=== PATIENT | female | born 1985 ===

== ENCOUNTER 2024-05-03 19:47 | Emergency (ER) | payer SELFPAY ==
--- NOTE | ~2024-05-03 | XR_ITS ---
XR abdomen/kub 1V Ordering provider: Lupe Wang NP History: . abd. pain /bloating/cramping . Comparison: None. FINDINGS: BOWEL: Nonobstructive bowel gas pattern. ORGANOMEGALY: None. SIGNIFICANT PATHOLOGIC CALCIFICATIONS: None. OTHER: No free air is seen under the diaphragm. IMPRESSION: NO ACUTE ABDOMINAL FINDINGS. Reviewed, dictated and finalized at location A.
[2024-05-03 19:55] VITALS: BP 141/86; PULSE 59; RESP 16; TEMP 36.3; O2SAT 98
--- NOTE | 2024-05-03 20:07 | ED.ABDPAIN ---
HPI - Abdominal Pain General Chief Complaint: Abdominal Pain Stated Complaint: Stomach Pain Time Seen by Provider: 05/03/24 19:55 Source: patient Mode of arrival: ambulatory Limitations: no limitations History of Present Illness HPI narrative: 39 yo F presents with c/o ABD cramping, bloating since this afternoon. Started after having a bowel movement. pain and cramping moving around. Was to [facility] and now more center. Had a normal BM, no diarrhea or blood. Denies N/V. Afebrile. Denies urinary complaints. All systems reviewed and negative except as noted above. Related Data Home Medications Medication Instructions Recorded Confirmed buspirone 10 mg tablet mg 05/03/24 05/03/24 citalopram 40 mg tablet mg 05/03/24 Allergies Allergy/AdvReac Type Severity Reaction Status Date / Time No Known Allergies Allergy Verified 09/13/21 15:50 Review of Systems Review of Systems: CONSTITUTIONAL: Denies fever, chills, or sweats. EYES: Denies visual changes, redness, or discharge. ENT: Denies rhinorrhea, congestion, sore throat, or otalgia. CARDIOVASCULAR: Denies chest pain, palpitations, or edema. RESPIRATORY: Denies cough or dyspnea. GASTROINTESTINAL: Reports abdominal pain and cramping, bloating. Denies nausea, vomiting, or diarrhea. GENITOURINARY: Denies dysuria or hematuria. SKIN: Denies rash or itching. MUSCULOSKELETAL: Denies back pain, joint pain, or myalgia. NEUROLOGIC: Denies headache, numbness, or weakness. PSYCHIATRIC: Denies anxiety or depression. All other systems reviewed are negative, except as documented in HPI. PMFSH Social History Social History (Updated 09/13/21 @ 15:52 by Delmi Burleson RN) Smoking status: Never smoker Alcohol intake: current Substance use: never Substance use type: does not use Comments At time of signature, agree with nursing past medical, surgical, social and family history. There is no relevant family history pertinent to the presenting complaint. Exam Narrative: GENERAL: This is a well-nourished, well-developed patient, in no apparent distress. HEAD: normocephalic, atraumatic. EYES: PERRL. Sclera clear/white. Vision is grossly intact. EARS: External ears normal NOSE: External nose normal NECK: Neck supple, non-tender without lymphadenopathy, masses or thyromegaly. CARDIOVASCULAR: Regular rate and rhythm without murmurs, gallops, or rubs. RESPIRATORY: Clear to auscultation. Breath sounds equal bilaterally. No wheezes, rales, or rhonchi. GASTROINTESTINAL: Abdomen soft, non-tender, mild distension. Bowel sounds are active. No hepato-splenomegaly, or palpable masses. No guarding. SKIN: warm, Dry, intact with no suspicious lesions or rash, good texture and turgor. NEURO: awake, alert, and oriented to person, place and time. There were no obvious focal neurologic abnormalities. EXTREMITIES: No joint tenderness, effusion, or edema noted. Course Course Emergency Course: Discussed x-ray results with patient. Recommend she take [id number] Gas-X, passed gas, increase fiber in diet. Will follow-up with her primary care physician if pain not improving. Will go to ER for any worsening of symptoms. Patient is aware of diagnosis, understands and agrees to treatment plan. Anticipatory guidance given. Patient agrees to follow-up as directed and is aware of reasons to seek care at the emergency department. Portions of this record may have been created with voice recognition software Level of Care: Express Care Visit Vital Signs Vital signs: Vital Signs Temperature 36.3 C L 05/03/24 19:55 Pulse Rate 59 L 05/03/24 19:55 Respiratory Rate 16 05/03/24 19:55 Blood Pressure 141/86 H 05/03/24 19:55 Pulse Oximetry 98 05/03/24 19:55 Temperature 36.3 C L 05/03/24 19:55 Pulse Rate 59 L 05/03/24 19:55 Respiratory Rate 16 05/03/24 19:55 Blood Pressure 141/86 H 05/03/24 19:55 Pulse Oximetry 98 05/03/24 19:55 Reviewed YESSENIA Galeas
== END 2024-05-03 20:26 | disposition home or self-care (01) ==
PROVIDERS: Emergency Provider Nurse Practitioner Family; PCP Physician Assistant
DX: R14.1 Gas pain (principal)
CPT/HCPCS: 74018; 99213; G0463